=== PATIENT | female | born 1995 | race Two or more races ===

== ENCOUNTER 2017-05-08 10:19 | Day surgery (SDC) | payer OTHER ==
[~2017-05-08] VITALS: Ht 160 cm; Wt 58.0 kg
[~2017-05-08 10:19] MED LIST: PRENATAL TABLE1 EAC3 PO; VENTOLIN HFA18 GM IH; ZYRTEC10 M3 PO; [UNRECOGNIZED DRUG - OTHER] PO
[2017-05-08 10:57] LABS: BASOPHIL COUNT 0.1 K/uL (0-0.1); EOSINOPHIL (%) 2.9 % (0-5); EOSINOPHIL COUNT 0.3 K/uL (0-0.3); HEMATOCRIT 39.6 % (36.0-46.0); IMMATURE GRANULOCYTE (%) 0.5 % (0.0-0.7); IMMATURE GRANULOCYTE COUNT 0.1 K/uL; INSTRUMENT ABS NEUTROPHIL CT 6.5 K/uL; LYMPHOCYTE COUNT 2.3 K/uL (1.0-2.8); MCH 29.8 PG (29.0-34.0); MCHC 34.1 G/DL (30.0-36.0); MCV 87.4 FL (83-99); MEAN PLAT.VOLUME 9.9 uM^3 (9.5-12.4); MONOCYTE (%) 8.1 % (3-12); MONOCYTE COUNT 0.8 K/uL (0-0.8); NEUTROPHIL COUNT 6.5 K/uL (1.8-6.4); PLATELET COUNT 284 K/uL (156-360); RBC DIS.WIDTH-CV 12.7 % (11.8-14.6); RBC DIS.WIDTH-SD 40.5 % (39-53); RED BLOOD COUNT 4.53 M/uL (3.80-5.20); WHITE BLOOD COUNT 9.9 K/uL (4.1-10.2)
[2017-05-08] MEDS ORDERED: CREON DR 12,001 EAC1 PO (11:21)
[2017-05-08 11:24] VITALS: BP 103/71
[2017-05-08] MEDS ORDERED: HYDROCODON-ACE1 EAC7 PO (14:31)
[2017-05-08] MEDS ORDERED: DOXYCYCLINE HY100 M3 PO (14:31)
[2017-05-08] MEDS ORDERED: IBUPROFEN800 MG PO (14:31)
[2017-05-08 15:10] VITALS: BP 104/64
[2017-05-08 16:07] VITALS: BP 97/59
== END 2017-05-08 16:19 | disposition home or self-care (01) ==
LOC: SDC 10:19
PROVIDERS: Obstetrics & Gynecology
PROC: 10D17ZZ Extraction of Products of Conception, Retained, Via Natural or Artificial Opening (ICD-10-PCS; principal; 2017-05-08)
DX: O02.1 Missed abortion (principal); Z3A.01 Less than 8 weeks gestation of pregnancy; Z82.49 Family history of ischemic heart disease and other diseases of the circulatory system; Z83.3 Family history of diabetes mellitus; Z83.2 Family history of diseases of the blood and blood-forming organs and certain disorders involving the immune mechanism
CPT/HCPCS: 85025; 86900; 86901; 87070; 87075; 87205; 88305; 94640; 99281; 99283; J1100; J1885; J2250; J2405; J3010